=== PATIENT | female | born 1985 | race Caucasian/White ===

== ENCOUNTER 2019-05-13 18:28 | Emergency (ER) | payer OTHER ==
[~2019-05-13] VITALS: Ht 154.9 cm; Wt 87.0 kg
[~2019-05-13 18:28] MED LIST: LIDOcaine 1% 30ml preserv. free vial ONE
[2019-05-13] MEDS ORDERED: LIDOcaine 1% 30ml preserv. free vial IJ STA (20:49)
[2019-05-13] MEDS ORDERED: ondansetron 4mg rapidly disintigrating tab PO ONE (20:50)
[2019-05-13] MEDS ORDERED: traMADol 50MG tablet PO ONE (20:50)
[2019-05-13] MEDS ORDERED: TRAM50TA2 PO (21:03)
[2019-05-13 21:35] VITALS: BP 139/85
== END 2019-05-13 21:36 | disposition home or self-care (01) ==
LOC: ER 18:29
DX: G89.11 Acute pain due to trauma (principal); M54.2 Cervicalgia; N64.4 Mastodynia; Z88.1 Allergy status to other antibiotic agents; Z88.5 Allergy status to narcotic agent; Z88.8 Allergy status to other drugs, medicaments and biological substances; Z79.899 Other long term (current) drug therapy
CPT/HCPCS: 20553; 99284; J2001